=== PATIENT | female | born 1945 | race Caucasian/White ===

== ENCOUNTER → 2016-10-10 | Outpatient (CLI) | payer MEDICARE, BC ==
[~2016-10-10] MED LIST: ASPI325T32 PO; ESCI10TA48 PO; LORA2ORA2 PO; OXYC10TA63 PO; PANT40TA4 PO; PERCOCET PO; SYN1 PO
== END | disposition home or self-care (01) ==
LOC: HKI 11:02
PROVIDERS: ATTEND Orthopaedic Surgery
DX: Z47.1 Aftercare following joint replacement surgery (principal); Z96.652 Presence of left artificial knee joint
CPT/HCPCS: G0463

== ENCOUNTER → 2017-03-01 | Outpatient (CLI) | payer MEDICARE, BC ==
--- NOTE | 2017-03-01 11:08 | RADRPT ---
PROCEDURE: XR left knee. CLINICAL INDICATION: Knee pain. TECHNIQUE: AP weightbearing, lateral weightbearing and sunrise views are available for review. COMPARISON: 08/01/2016 FINDINGS: There is a total knee replacement. There is no evidence of loosening of the prosthesis. There is no evidence of hardware failure. The osseous structures are normal in mineralization, architecture and alignment No acute fracture or dislocation is seen.No osseous lesions are identified. The soft tiss ues are unremarkable . IMPRESSION: Unremarkable total knee replacement. RPTAT: [facility] .Luis A Caldwell MD, MD Date Time Electronically viewed and signed by .Luis A Caldwell MD, MD on 03/01/2017 11:07 .B/
== END | disposition home or self-care (01) ==
LOC: HKI 10:11
PROVIDERS: ATTEND Orthopaedic Surgery
DX: M25.562 Pain in left knee (principal); Z96.652 Presence of left artificial knee joint
CPT/HCPCS: 73562; G0463